=== PATIENT | male | born 1995 | race Caucasian/White ===

== ENCOUNTER 2016-10-07 23:46 | Emergency (ER) | payer BC ==
[2016-10-07] MEDS ORDERED: Bupivacaine 0.5%/EPINEPHrine 1:200,000 50 ML MDV NERVRT ONE (23:57)
--- NOTE | 2016-10-08 00:06 | EDM.PDOC ---
ED HPI GENERAL MEDICAL PROBLEM - General Chief Complaint: ENT Problem Stated Complaint: TOOTHACHE Time Seen by Provider: 10/07/16 23:55 Source of Information: Reports: Patient, Old Records History Limitations: Reports: No Limitations - History of Present Illness INITIAL COMMENTS - FREE TEXT/NARRATIVE: 21 yo male here with dental pain. Had a wisdom tooth pulled a few days ago and had it flushed out today with the dentist. Has [place], but is having shooting pains now not relieved by this med. No fever. Onset: Today Onset Date: 10/07/16 Onset Time: 21:00 Duration: Minutes:, Intermittent Location: Reports: Face Quality: Reports: Sharp, Stabbing Severity: Moderate Improves with: Reports: None Worsens with: Reports: None Context: Reports: Other (Recent dental extraction) Associated Symptoms: Reports: No Other Symptoms Treatments [employer]CH[employer]ICIAN: Reports: Other Medication(s) ([place]) - Related Data Allergies Allergy/AdvReac Type Severity Reaction Status Date / Time amoxicillin [Amoxicillin] Allergy Hives Verified 12/01/12 19:49 Penicillins Allergy Hives Verified 12/01/12 19:49 Home Meds: Home Meds oxyCODONE HCl/Acetaminophen [Oxycodone-Acetaminophen 5-325] 1 each PO Q6H PRN # 8 tablet 12/01/12 [Rx] Past Medical History - Past Health History Medical/Surgical History: Denies Medical/Surgical History Social & Family History - Tobacco Use Second Hand Smoke Exposure: No - Alcohol Use Days Per Week of Alcohol Use: 0 - Recreational Drug Use Recreational Drug Use: No ED ROS ENT - Review of Systems Review Of Systems: See Below Constitutional: Reports: No Symptoms HEENT: Reports: Dental Pain Respiratory: Reports: No Symptoms Cardiovascular: Reports: No Symptoms GI/Abdominal: Reports: No Symptoms Skin: Reports: No Symptoms Neurological: Reports: Other (shooting pain ) Psychiatric: Reports: No Symptoms ED EXAM, ENT - Physical Exam Exam: See Below Exam Limited By: No Limitations General Appearance: Alert, WD/WN, No Apparent Distress Eye Exam: Bilateral Eye: Normal Inspection Ears: Normal External Exam, Normal Canal, Hearing Grossly Normal Nose: Normal Inspection, Normal Mucousa, No Blood Mouth/Throat: Normal Inspection, Normal Gums, Normal Oropharynx, Normal Teeth Head: Atraumatic, Normocephalic, Facial Swelling (slight R sided facial swelling (mandibular)) Neck: Normal Inspection, Supple, Non-Tender ED ENT PROCEDURES - Additional/Other Procedure(s) Other (Free Text) Procedure(s): Submandibular nerve block with 6 ml of 0.5% bupivacaine with epi. Course - Orders/Labs/Meds Orders: Active Orders 24 hr Category Date Time Status Bupivacaine 0.5%/EPINEPHrine [Marcaine 0.5%/EPINEPHrine Med 10/07/16 23:57 Once 1:200,000] 10 ml NERVRT ONETIME ONE Departure - Departure Time of Disposition: 00:20 Disposition: Home, Self-Care 01 Condition: Good Clinical Impression: Pain, dental - Discharge Information - My Orders Last 24 Hours: My Active Orders 10/07/16 23:57 Bupivacaine 0.5%/EPINEPHrine [Marcaine 0.5%/EPINEPHrine 1:200,000] 10 ml NERVRT ONETIME ONE - Assessment/Plan Last 24 Hours: My Active Orders 10/07/16 23:57 Bupivacaine 0.5%/EPINEPHrine [Marcaine 0.5%/EPINEPHrine 1:200,000] 10 ml NERVRT ONETIME ONE
[2016-10-08 00:26] VITALS: BP 156/72
== END 2016-10-08 00:25 | disposition home or self-care (01) ==
LOC: FB.ED 23:46
DX: K08.89 Other specified disorders of teeth and supporting structures (principal); Z88.1 Allergy status to other antibiotic agents; Z88.0 Allergy status to penicillin
CPT/HCPCS: 64400; 96372; 99282